=== PATIENT | male | born 1955 | race Two or more races ===

== ENCOUNTER 2017-11-22 14:19 | Inpatient (IN) | payer OTHER ==
[2017-11-22 15:02] LABS: ADD MAN DIFF? NO
[2017-11-22 15:04] LABS: WHITE BLOOD COUNT 10.4 10^3/ul (4.8-10.8)
[2017-11-22 15:04] LABS: BASOPHIL # 0.1 10^3/ul (0.0-0.1); BASOPHILS % 0.6 % (0.0-2.0); EOSINOPHILS # 0.1 10^3/ul (0.0-0.5); EOSINOPHILS % 1.2 % (0.0-7.0); HEMATOCRIT 52.8 % (42.0-52.0); HEMOGLOBIN 17.2 g/dl (14.0-18.0); LYMPHOCYTES # 2.9 10^3/ul (0.8-2.9); LYMPHOCYTES % 28.2 % (15.0-51.0); MEAN CORPUSCULAR HEMOGLOBIN 25.4 pg (29.0-33.0); MEAN CORPUSCULAR HGB CONC 32.6 g/dl (32.0-37.0); MEAN CORPUSCULAR VOLUME 77.9 fl (82.0-101.0); MEAN PLATELET VOLUME 11.8 fl (7.4-10.4); MONOCYTE # 0.8 10^3/ul (0.3-0.9); MONOCYTES % 7.3 % (0.0-11.0); NEUTROPHIL # 6.5 10^3/ul (1.6-7.5); NEUTROPHILS % 62.3 % (39.0-77.0); PLATELET COUNT 165 10^3/UL (140-415); RED BLOOD COUNT 6.78 10^6/ul (4.70-6.10); RED CELL DISTRIBUTION WIDTH 15.7 % (11.5-14.5)
[2017-11-22 15:20] LABS: INR 0.94; PARTIAL THROMBOPLASTIN TIME 32.6 Sec (25.0-35.0); PROTIME 12.7 Sec (11.9-14.9)
[2017-11-22 15:24] LABS: ALANINE AMINOTRANSFERASE 39 IU/L (13-69); ALBUMIN 3.8 g/dl (3.3-4.9); ALBUMIN/GLOBULIN RATIO 1.11; ALKALINE PHOSPHATASE 99 IU/L (42-121); ANION GAP 10 (8-16); ASPARTATE AMINO TRANSFERASE 49 IU/L (15-46); CARBON DIOXIDE 29 mmol/L (21-31); CHLORIDE 104 mmol/L (97-110); CHOL/HDL RATIO 9.6 RATIO; CHOLESTEROL 212 mg/dl (100-200); CREATINE KINASE 237 IU/L (23-200); GLUCOSE 244 mg/dl (70-220); HDL CHOLESTEROL 22 mg/dl (30-78); LDL CHOLESTEROL,CALCULATED 95 mg/dl; TOTAL PROTEIN 7.2 g/dl (6.1-8.1); TRIGLYCERIDES 473 mg/dl (0-149)
[2017-11-22 15:28] LABS: BLOOD UREA NITROGEN 11 mg/dl (7-20); CALCIUM 9.8 mg/dl (8.4-10.2); CREATININE 0.76 mg/dl (0.61-1.24); POTASSIUM 4.3 mmol/L (3.5-5.1); SODIUM 139 mmol/L (135-144)
[2017-11-22 15:36] LABS: CK INDEX 6.1
[2017-11-22] MEDS ORDERED: MIDAZOLAM 1 MG/ML 2 ML INJ (16:04)
[2017-11-22] MEDS ORDERED: FENTAnyl 50 MCG/ML VIAL (16:04)
[2017-11-22] MEDS ORDERED: HEPARIN 1000 UNITS/ML 10 ML INJ (16:04)
[2017-11-22] MEDS ORDERED: IODIXANOL LOCM 100 ML BTL (16:04)
[2017-11-22] MEDS ORDERED: LIDOCAINE 1% (MDV) 20 ML INJ (16:04)
[2017-11-22] MEDS ORDERED: VERAPAMIL 5 MG INJ (16:04)
[2017-11-22] MEDS ORDERED: SOD CHLORIDE 0.9% 500 ML (16:05)
[2017-11-22] MEDS ORDERED: NITROGLYCERIN (IC) 100 MCG/ML INJ (16:05)
[2017-11-22] MEDS ORDERED: NITROGLYCERIN 50 MG/D5W (PMX) 250 ML IV (17:30)
[2017-11-22] MEDS: HEPARIN 25000 UNITS/250 ML 250 ML IV (18:35)
[2017-11-22] MEDS: SOD CHLORIDE 0.9% 1,000 ML IV (18:35)
[2017-11-22] MEDS: ASPIRIN (EC) 81 MG TAB PO (19:08)
[2017-11-22] MEDS: DOCUSATE SODIUM 100 MG CAP PO (20:52)
[2017-11-22] MEDS: FAMOTIDINE 20 MG TAB PO (20:53)
[2017-11-22] MEDS: ATORVASTATIN 80 MG TAB PO (20:53)
[2017-11-22] MEDS: CEFAZOLIN 3 GM in DEXTROSE 5% 100 ML IVPB (21:58)
[2017-11-23 01:09] LABS: PARTIAL THROMBOPLASTIN TIME 34.3 Sec (25.0-35.0)
[2017-11-23] MEDS: PANTOPRAZOLE 40 MG INJ IV (05:16)
[2017-11-23 05:44] LABS: ADD MAN DIFF? NO
[2017-11-23 06:01] LABS: BASOPHIL # 0.1 10^3/ul (0.0-0.1); BASOPHILS % 0.7 % (0.0-2.0); EOSINOPHILS # 0.1 10^3/ul (0.0-0.5); EOSINOPHILS % 1.3 % (0.0-7.0); HEMATOCRIT 50.8 % (42.0-52.0); HEMOGLOBIN 16.5 g/dl (14.0-18.0); LYMPHOCYTES % 33.4 % (15.0-51.0); MEAN CORPUSCULAR HEMOGLOBIN 25.3 pg (29.0-33.0); MEAN CORPUSCULAR HGB CONC 32.5 g/dl (32.0-37.0); MEAN CORPUSCULAR VOLUME 77.8 fl (82.0-101.0); MEAN PLATELET VOLUME 11.7 fl (7.4-10.4); MONOCYTE # 0.7 10^3/ul (0.3-0.9); MONOCYTES % 7.7 % (0.0-11.0); NEUTROPHIL # 5.1 10^3/ul (1.6-7.5); NEUTROPHILS % 56.6 % (39.0-77.0); PLATELET COUNT 137 10^3/UL (140-415); RED BLOOD COUNT 6.53 10^6/ul (4.70-6.10); RED CELL DISTRIBUTION WIDTH 14.6 % (11.5-14.5)
[2017-11-23 06:01] LABS: WHITE BLOOD COUNT 8.9 10^3/ul (4.8-10.8)
[2017-11-23 06:22] LABS: ANION GAP 11 (8-16); BLOOD UREA NITROGEN 13 mg/dl (7-20); CALCIUM 8.9 mg/dl (8.4-10.2); CARBON DIOXIDE 28 mmol/L (21-31); CHLORIDE 104 mmol/L (97-110); CHOLESTEROL 181 mg/dl (100-200); CREATINE KINASE 105 IU/L (23-200); CREATININE 0.74 mg/dl (0.61-1.24); GLUCOSE 246 mg/dl (70-220); HDL CHOLESTEROL 20 mg/dl (30-78); LDL CHOLESTEROL,CALCULATED 94 mg/dl; POTASSIUM 4.3 mmol/L (3.5-5.1); SODIUM 139 mmol/L (135-144); TRIGLYCERIDES 335 mg/dl (0-149)
[2017-11-23 06:24] LABS: CK INDEX 5.2
[2017-11-23 06:58] LABS: CK-MB 5.46 ng/ml (0.0-2.4)
[2017-11-23] MEDS ORDERED: DOPamine-D5W 1.6 MG/ML 250 ML (07:00)
[2017-11-23] MEDS ORDERED: NITROGLYCERIN 50 MG/D5W 250 ML BTL (07:00)
[2017-11-23] MEDS ORDERED: TRANEXAMIC ACID 1,000 MG/10 ML VIAL (07:00)
[2017-11-23] MEDS ORDERED: MIDAZOLAM 5 ML (07:05)
[2017-11-23] MEDS ORDERED: PHENYLephrine (100 MCG/ML) 5ML SYG ×2 (07:06→08:02)
[2017-11-23] MEDS ORDERED: CA CHLORIDE 10% 10 ML SYRINGE (07:38)
[2017-11-23] MEDS ORDERED: MANNITOL 20% 250 ML IV (07:38)
[2017-11-23] MEDS ORDERED: PHENYLephrine 10 MG INJ (07:38)
[2017-11-23] MEDS ORDERED: ALBUMIN HUMAN 25% 100 ML (07:38)
[2017-11-23] MEDS ORDERED: AMINOCAPROIC ACID 5 GM INJ (07:38)
[2017-11-23] MEDS ORDERED: NA BICARBONATE 8.4% 50 ML SYG (07:38)
[2017-11-23] MEDS ORDERED: HEPARIN 1000 UNITS/ML 10 ML INJ ×4 (07:38→09:32)
[2017-11-23] MEDS ORDERED: MAGNESIUM SULFATE (MG) 50% 10 ML INJ (07:38)
[2017-11-23] MEDS ORDERED: LIDOCAINE 100 MG SYRINGE (07:38)
[2017-11-23] MEDS ORDERED: POTASSIUM CHLORIDE 40 MEQ INJ (07:39)
[2017-11-23] MEDS ORDERED: CEFAZOLIN 1 GM INJ ×2 (07:59→10:11)
[2017-11-23] MEDS: PAPAVERINE 60 MG INJ (08:09)
[2017-11-23] MEDS: HEPARIN 1000 UNITS/ML 10 ML INJ (08:09)
[2017-11-23] MEDS ORDERED: FUROSEMIDE 20 MG INJ ×3 (09:32→10:18)
[2017-11-23] MEDS ORDERED: PROTAMINE 250 MG INJ (10:11)
[2017-11-23] MEDS: VANCOMYCIN 1 GM INJ (10:18)
[2017-11-23] MEDS ORDERED: POTASSIUM CHLORIDE 50 ML IVPB (11:00)
[2017-11-23] MEDS ORDERED: DEXTROSE 50% 50 ML SYRINGE IV ×2 (11:00)
[2017-11-23] MEDS ORDERED: ONDANSETRON 4 MG INJ IV (11:00)
[2017-11-23] MEDS ORDERED: ACETAMINOPHEN 650 MG SUPP PR (11:00)
[2017-11-23] MEDS ORDERED: ACETAMINOPHEN 325 MG TAB PO (11:00)
[2017-11-23] MEDS ORDERED: OXYCODONE/ACETAMINOPHEN (5/325) TAB PO (11:00)
[2017-11-23] MEDS ORDERED: LIDOCAINE 2% (SDV) 5 ML INJ (11:09)
[2017-11-23] MEDS ORDERED: ETOMIDATE 20 MG INJ (11:09)
[2017-11-23] MEDS ORDERED: ROCURONIUM 50 MG INJ (11:09)
[2017-11-23] MEDS ORDERED: DOPamine-D5W 1.6 MG/ML 250 ML IV (11:30)
[2017-11-23] MEDS ORDERED: NITROGLYCERIN 50 MG/D5W (PMX) 250 ML IV (11:30)
[2017-11-23] MEDS: INSULIN HUMAN REGULAR 100 UNIT in SOD CHLORIDE 0.9% 99 ML IVPB (11:51)
[2017-11-23] MEDS: NITROGLYCERIN 50 MG/D5W (PMX) 250 ML IV (11:52)
[2017-11-23 11:53] LABS: ADD MAN DIFF? NO
[2017-11-23] MEDS: DOPamine-D5W 1.6 MG/ML 250 ML IV (11:53)
[2017-11-23 11:55] LABS: WHITE BLOOD COUNT 13.3 10^3/ul (4.8-10.8)
[2017-11-23 11:55] LABS: BASOPHIL # 0.1 10^3/ul (0.0-0.1); BASOPHILS % 0.4 % (0.0-2.0); EOSINOPHILS # 0.1 10^3/ul (0.0-0.5); EOSINOPHILS % 0.6 % (0.0-7.0); HEMATOCRIT 45.5 % (42.0-52.0); HEMOGLOBIN 14.9 g/dl (14.0-18.0); LYMPHOCYTES # 2.5 10^3/ul (0.8-2.9); LYMPHOCYTES % 19.1 % (15.0-51.0); MEAN CORPUSCULAR HEMOGLOBIN 25.8 pg (29.0-33.0); MEAN CORPUSCULAR HGB CONC 32.7 g/dl (32.0-37.0); MEAN CORPUSCULAR VOLUME 78.7 fl (82.0-101.0); MONOCYTE # 0.8 10^3/ul (0.3-0.9); MONOCYTES % 5.9 % (0.0-11.0); NEUTROPHIL # 9.8 10^3/ul (1.6-7.5); NEUTROPHILS % 73.4 % (39.0-77.0); POSITIVE DIFF @See below; RED BLOOD COUNT 5.78 10^6/ul (4.70-6.10); RED CELL DISTRIBUTION WIDTH 14.8 % (11.5-14.5)
[2017-11-23 11:58] LABS: PLATELET COUNT 125 10^3/UL (140-415)
[2017-11-23 11:59] LABS: AADO2 Arterial 290.2 mmHg (7.0-24.0); Arterial Base Excess -1.9 mmol/L (-3.0-3); Arterial Blood Gas Oxygen Sat 91.7 mmHG (95.0-98.0); Arterial COHb 1.3 % (0.0-3.0); Arterial Fraction of Oxyhgb 90.1 % (93.0-99.0); Arterial HCO3 26.7 mmol/L (22.0-26.0); Arterial MetHb 0.4 % (0.0-1.5); Arterial Total Hemglobin 15.8 g/dl (12.0-18.0); Arterial pCO2 61.8 mmhg (35-45); MODE VENT - AC; Site A-Line
[2017-11-23] MEDS: HYDROmorphONE 0.5 MG/0.5 ML SYG IV ×4 (12:10→17:39)
[2017-11-23 12:18] LABS: INR 1.13; PROTIME 14.7 Sec (11.9-14.9); PT RATIO 1.1
[2017-11-23 12:19] LABS: PARTIAL THROMBOPLASTIN TIME 26.4 Sec (25.0-35.0)
[2017-11-23] MEDS ORDERED: PROPOFOL 100 ML IV (12:30)
[2017-11-23 12:43] LABS: ANION GAP 8 (8-16); BLOOD UREA NITROGEN 13 mg/dl (7-20); CALCIUM 7.9 mg/dl (8.4-10.2); CARBON DIOXIDE 27 mmol/L (21-31); CHLORIDE 108 mmol/L (97-110); CREATININE 0.79 mg/dl (0.61-1.24); GLUCOSE 157 mg/dl (70-220); MAGNESIUM 2.6 mg/dl (1.7-2.5); POTASSIUM 3.4 mmol/L (3.5-5.1); SODIUM 140 mmol/L (135-144)
[2017-11-23] MEDS: PROPOFOL 100 ML IV ×2 (13:31→23:30)
[2017-11-23 13:37] LABS: AADO2 Arterial 128.6 mmHg (7.0-24.0); Arterial Base Excess -0.3 mmol/L (-3.0-3); Arterial COHb 1.1 % (0.0-3.0); Arterial Fraction of Oxyhgb 93.6 % (93.0-99.0); Arterial HCO3 28.4 mmol/L (22.0-26.0); Arterial MetHb 0.4 % (0.0-1.5); Arterial Total Hemglobin 16.6 g/dl (12.0-18.0); Arterial pCO2 62.9 mmhg (35-45); Blood Gas PS 10; MODE VENT - CPAP; Site A-Line
[2017-11-23] MEDS ORDERED: ALBUMIN HUMAN 5% 250 ML (13:56)
[2017-11-23] MEDS: ALBUMIN HUMAN 5% 250 ML IV (14:04)
[2017-11-23] MEDS: INSULIN HUMAN REGULAR 100 UNIT in SOD CHLORIDE 0.9% 99 ML IV ×3 (14:17→23:19)
[2017-11-23] MEDS: CEFAZOLIN 1 GM/50 ML (PMX) 50 ML IVPB ×2 (14:27→19:15)
[2017-11-23] MEDS: DEXMEDETOMIDINE HCL 200 MCG in SOD CHLORIDE 0.9% 48 ML IV (14:28)
[2017-11-23] MEDS: POTASSIUM CHLORIDE 40 MEQ, CALCIUM CHLORIDE 10% 1 GM in DEXTROSE 5%-0.225% NACL 1,000 ML IV (14:53)
[2017-11-23] MEDS: KCL 30 MEQ in NS 250 ML IVPB X1 IVPB (16:05)
[2017-11-23] MEDS: ALBUTEROL/IPRATROPIUM (NEB) 3 ML AMP HHN ×2 (17:47→20:20)
[2017-11-23] MEDS: FAMOTIDINE 20 MG INJ IV (20:00)
[2017-11-23 20:14] LABS: MAGNESIUM 1.9 mg/dl (1.7-2.5)
[2017-11-23 20:14] LABS: POTASSIUM 4.2 mmol/L (3.5-5.1)
[2017-11-23] MEDS: MAGNESIUM SULFATE 1 GM/D5W 100 ML IVPB ×2 (20:32)
[2017-11-23] MEDS: KETOROLAC 30 MG INJ IV (20:39)
[2017-11-23] MEDS: FAMOTIDINE 20 MG TAB PO (20:39)
[2017-11-24] MEDS: POTASSIUM CHLORIDE 100 ML IVPB ×2 (00:30→10:22)
[2017-11-24] MEDS: ALBUTEROL/IPRATROPIUM (NEB) 3 ML AMP HHN ×6 (01:47→20:50)
[2017-11-24] MEDS: CEFAZOLIN 1 GM/50 ML (PMX) 50 ML IVPB (02:47)
[2017-11-24 04:19] LABS: ADD MAN DIFF? NO
[2017-11-24 04:22] LABS: WHITE BLOOD COUNT 13.4 10^3/ul (4.8-10.8)
[2017-11-24 04:22] LABS: BASOPHILS % 0.1 % (0.0-2.0); HEMATOCRIT 42.5 % (42.0-52.0); HEMOGLOBIN 13.9 g/dl (14.0-18.0); LYMPHOCYTES # 1.5 10^3/ul (0.8-2.9); LYMPHOCYTES % 10.8 % (15.0-51.0); MEAN CORPUSCULAR HEMOGLOBIN 26.1 pg (29.0-33.0); MEAN CORPUSCULAR HGB CONC 32.7 g/dl (32.0-37.0); MEAN CORPUSCULAR VOLUME 79.7 fl (82.0-101.0); MEAN PLATELET VOLUME 11.7 fl (7.4-10.4); MONOCYTES % 7.3 % (0.0-11.0); NEUTROPHIL # 10.9 10^3/ul (1.6-7.5); NEUTROPHILS % 81.3 % (39.0-77.0); PLATELET COUNT 113 10^3/UL (140-415); POSITIVE DIFF @See below; RED BLOOD COUNT 5.33 10^6/ul (4.70-6.10); RED CELL DISTRIBUTION WIDTH 14.8 % (11.5-14.5)
[2017-11-24 04:44] LABS: INR 1.12; PARTIAL THROMBOPLASTIN TIME 33.2 Sec (25.0-35.0); PROTIME 14.6 Sec (11.9-14.9); PT RATIO 1.1
[2017-11-24] MEDS: HYDROmorphONE 0.5 MG/0.5 ML SYG IV ×2 (06:09→10:22)
[2017-11-24 07:00] LABS: AADO2 Arterial 49.5 mmHg (7.0-24.0); Arterial Base Excess -2.9 mmol/L (-3.0-3); Arterial Blood Gas Oxygen Sat 92.3 mmHG (95.0-98.0); Arterial COHb 1.2 % (0.0-3.0); Arterial Fraction of Oxyhgb 90.9 % (93.0-99.0); Arterial HCO3 20.6 mmol/L (22.0-26.0); Arterial MetHb 0.3 % (0.0-1.5); Arterial Total Hemglobin 14.1 g/dl (12.0-18.0); Arterial pCO2 32.7 mmhg (35-45); MODE ROOM AIR; Site A-Line
[2017-11-24 07:19] LABS: ANION GAP 10 (8-16); BLOOD UREA NITROGEN 10 mg/dl (7-20); CARBON DIOXIDE 24 mmol/L (21-31); CHLORIDE 111 mmol/L (97-110); CREATININE 0.65 mg/dl (0.61-1.24); GLUCOSE 144 mg/dl (70-220); MAGNESIUM 2.1 mg/dl (1.7-2.5); POTASSIUM 4.2 mmol/L (3.5-5.1); SODIUM 141 mmol/L (135-144)
[2017-11-24] MEDS: EPINEPHrine 4 MG in DEXTROSE 5% 246 ML IV (07:55)
[2017-11-24] MEDS: POTASSIUM CHLORIDE 40 MEQ, CALCIUM CHLORIDE 10% 1 GM in DEXTROSE 5%-0.225% NACL 1,000 ML IV (07:55)
[2017-11-24] MEDS: PHENYLephrine 20MG IN 250 ML 250 ML IV ×2 (07:55)
[2017-11-24] MEDS: NORepinephrine 8MG/250 ML (PMX 250 ML IV (07:55)
[2017-11-24] MEDS: ASPIRIN 600 MG SUPP PR (07:55)
[2017-11-24] MEDS: HEPARIN (10000 UNITS/ML) 10,000 UNIT, MILRINONE LACTATE 10 MG in SOD CHLORIDE 0.9% 1,00... SC (07:55)
[2017-11-24] MEDS: MILRINONE LACTATE 2 MG in SOD CHLORIDE 0.9% 50 ML IV (07:55)
[2017-11-24] MEDS: ACCU-CHEK XX ×2 (07:57→08:16)
[2017-11-24] MEDS: FAMOTIDINE 20 MG INJ IV (08:46)
[2017-11-24] MEDS: ASPIRIN (EC) 81 MG TAB PO (08:47)
[2017-11-24] MEDS: ENOXAPARIN 40 MG/0.4 ML SYG SC (08:48)
[2017-11-24 09:04] LABS: AADO2 Arterial 130.6 mmHg (7.0-24.0); Arterial Base Excess 1.2 mmol/L (-3.0-3); Arterial Blood Gas Oxygen Sat 97.2 mmHG (95.0-98.0); Arterial COHb 0.9 % (0.0-3.0); Arterial HCO3 28.1 mmol/L (22.0-26.0); Arterial MetHb 0.3 % (0.0-1.5); Arterial Total Hemglobin 15.2 g/dl (12.0-18.0); Blood Gas PS 10; MODE VENT - CPAP; Site A-Line
[2017-11-24] MEDS ORDERED: GLUCAGON 1 MG INJ IM (10:00)
[2017-11-24] MEDS ORDERED: GLUCOSE GEL 15 GRAM TUBE PO ×2 (10:00)
[2017-11-24] MEDS ORDERED: GLUCOSE GEL 15 GRAM TUBE BUCCAL (10:00)
[2017-11-24] MEDS ORDERED: DEXTROSE 50% 50 ML SYRINGE IV ×2 (10:00)
[2017-11-24] MEDS: INSULIN ASPART [NOVOLOG] 3 ML PEN SC ×6 (11:37→21:36)
[2017-11-24] MEDS: INSULIN GLARGINE [LANtus] 3 ML PEN SC (11:37)
[2017-11-24] MEDS: OXYCODONE/ACETAMINOPHEN (5/325) TAB PO (15:31)
[2017-11-24] MEDS: ATORVASTATIN 40 MG TAB PO (21:03)
[2017-11-25] MEDS: ALBUTEROL/IPRATROPIUM (NEB) 3 ML AMP HHN ×6 (01:23→20:05)
[2017-11-25] MEDS: ACCU-CHEK XX (01:29)
[2017-11-25] MEDS: OXYCODONE/ACETAMINOPHEN (5/325) TAB PO (04:19)
[2017-11-25 06:11] LABS: ADD MAN DIFF? NO
[2017-11-25 06:20] LABS: WHITE BLOOD COUNT 13.6 10^3/ul (4.8-10.8)
[2017-11-25 06:20] LABS: BASOPHILS % 0.1 % (0.0-2.0); EOSINOPHILS % 0.2 % (0.0-7.0); HEMATOCRIT 41.7 % (42.0-52.0); HEMOGLOBIN 13.8 g/dl (14.0-18.0); LYMPHOCYTES # 1.8 10^3/ul (0.8-2.9); LYMPHOCYTES % 13.3 % (15.0-51.0); MEAN CORPUSCULAR HEMOGLOBIN 26.3 pg (29.0-33.0); MEAN CORPUSCULAR HGB CONC 33.1 g/dl (32.0-37.0); MEAN CORPUSCULAR VOLUME 79.4 fl (82.0-101.0); MEAN PLATELET VOLUME 11.9 fl (7.4-10.4); MONOCYTES % 7.2 % (0.0-11.0); NEUTROPHIL # 10.6 10^3/ul (1.6-7.5); NEUTROPHILS % 78.4 % (39.0-77.0); PLATELET COUNT 114 10^3/UL (140-415); RED BLOOD COUNT 5.25 10^6/ul (4.70-6.10); RED CELL DISTRIBUTION WIDTH 14.6 % (11.5-14.5)
[2017-11-25 06:36] LABS: INR 1.11; PROTIME 14.5 Sec (11.9-14.9); PT RATIO 1.1
[2017-11-25 06:56] LABS: PHOSPHORUS 2.8 mg/dl (2.5-4.9)
[2017-11-25 06:56] LABS: MAGNESIUM 1.7 mg/dl (1.7-2.5)
[2017-11-25] MEDS: INSULIN ASPART [NOVOLOG] 3 ML PEN SC ×7 (07:54→20:20)
[2017-11-25] MEDS: INSULIN GLARGINE [LANtus] 3 ML PEN SC (07:54)
[2017-11-25] MEDS ORDERED: INSULIN GLARGINE [LANtus] 3 ML PEN SC (08:00)
[2017-11-25 08:32] LABS: ALANINE AMINOTRANSFERASE 31 IU/L (13-69); ALBUMIN 3.1 g/dl (3.3-4.9); ALKALINE PHOSPHATASE 86 IU/L (42-121); ANION GAP 11 (8-16); ASPARTATE AMINO TRANSFERASE 21 IU/L (15-46); BLOOD UREA NITROGEN 11 mg/dl (7-20); CALCIUM 8.7 mg/dl (8.4-10.2); CARBON DIOXIDE 27 mmol/L (21-31); CHLORIDE 102 mmol/L (97-110); CREATININE 0.67 mg/dl (0.61-1.24); GLUCOSE 203 mg/dl (70-220); POTASSIUM 4.2 mmol/L (3.5-5.1); SODIUM 136 mmol/L (135-144); TOTAL PROTEIN 5.9 g/dl (6.1-8.1)
[2017-11-25] MEDS: LISINOPRIL 10 MG TAB PO (08:45)
[2017-11-25] MEDS: ASPIRIN (EC) 81 MG TAB PO (08:46)
[2017-11-25] MEDS: ENOXAPARIN 40 MG/0.4 ML SYG SC (08:47)
[2017-11-25] MEDS: ATORVASTATIN 40 MG TAB PO (20:19)
[2017-11-25] MEDS: ZOLPIDEM 5 MG TAB PO (20:19)
[2017-11-26] MEDS: ALBUTEROL/IPRATROPIUM (NEB) 3 ML AMP HHN ×6 (00:55→20:51)
[2017-11-26] MEDS: ZOLPIDEM 5 MG TAB PO ×2 (01:59→22:50)
[2017-11-26] MEDS: ACCU-CHEK XX (02:00)
[2017-11-26 06:59] LABS: ADD MAN DIFF? NO
[2017-11-26 07:04] LABS: WHITE BLOOD COUNT 11.9 10^3/ul (4.8-10.8)
[2017-11-26 07:04] LABS: BASOPHILS % 0.3 % (0.0-2.0); EOSINOPHILS # 0.1 10^3/ul (0.0-0.5); HEMATOCRIT 41.7 % (42.0-52.0); HEMOGLOBIN 13.4 g/dl (14.0-18.0); LYMPHOCYTES # 1.8 10^3/ul (0.8-2.9); LYMPHOCYTES % 15.3 % (15.0-51.0); MEAN CORPUSCULAR HEMOGLOBIN 25.6 pg (29.0-33.0); MEAN CORPUSCULAR HGB CONC 32.1 g/dl (32.0-37.0); MEAN CORPUSCULAR VOLUME 79.6 fl (82.0-101.0); MEAN PLATELET VOLUME 11.7 fl (7.4-10.4); MONOCYTE # 1.1 10^3/ul (0.3-0.9); MONOCYTES % 8.8 % (0.0-11.0); NEUTROPHIL # 8.8 10^3/ul (1.6-7.5); NEUTROPHILS % 73.9 % (39.0-77.0); PLATELET COUNT 156 10^3/UL (140-415); RED BLOOD COUNT 5.24 10^6/ul (4.70-6.10); RED CELL DISTRIBUTION WIDTH 14.6 % (11.5-14.5)
[2017-11-26 07:34] LABS: B-TYPE NATRIURETIC PEPTIDE 1120 PG/ML (0-125)
[2017-11-26 07:35] LABS: ALANINE AMINOTRANSFERASE 25 IU/L (13-69); ALBUMIN 3.1 g/dl (3.3-4.9); ALBUMIN/GLOBULIN RATIO 0.96; ALKALINE PHOSPHATASE 94 IU/L (42-121); ANION GAP 12 (8-16); ASPARTATE AMINO TRANSFERASE 20 IU/L (15-46); BILIRUBIN,INDIRECT 0.9 mg/dl (0-1.1); BILIRUBIN,TOTAL 0.9 mg/dl (0.2-1.3); BLOOD UREA NITROGEN 13 mg/dl (7-20); CALCIUM 9.1 mg/dl (8.4-10.2); CARBON DIOXIDE 30 mmol/L (21-31); CHLORIDE 99 mmol/L (97-110); CREATININE 0.73 mg/dl (0.61-1.24); GLUCOSE 218 mg/dl (70-220); MAGNESIUM 1.7 mg/dl (1.7-2.5); SODIUM 137 mmol/L (135-144); TOTAL PROTEIN 6.3 g/dl (6.1-8.1)
[2017-11-26] MEDS: INSULIN ASPART [NOVOLOG] 3 ML PEN SC ×7 (08:20→20:16)
[2017-11-26] MEDS: INSULIN GLARGINE [LANtus] 3 ML PEN SC (08:22)
[2017-11-26] MEDS: ASPIRIN (EC) 81 MG TAB PO (08:25)
[2017-11-26] MEDS: LISINOPRIL 10 MG TAB PO (08:25)
[2017-11-26] MEDS: ENOXAPARIN 40 MG/0.4 ML SYG SC (08:27)
[2017-11-26] MEDS: BUMETANIDE 1 MG INJ IV (14:46)
[2017-11-26] MEDS ORDERED: POTASSIUM CHLORIDE 20 MEQ POWDER FOR ORAL SOLN PO ×3 (18:30)
[2017-11-26] MEDS: COLCHICINE 0.6 MG TAB PO (20:13)
[2017-11-26] MEDS: ATORVASTATIN 40 MG TAB PO (20:13)
[2017-11-27] MEDS: ALBUTEROL/IPRATROPIUM (NEB) 3 ML AMP HHN ×2 (00:26→04:07)
[2017-11-27] MEDS: ACCU-CHEK XX (02:00)
[2017-11-27] MEDS: BUMETANIDE 0.5 MG TAB PO (05:28)
[2017-11-27] MEDS ORDERED: BUMETANIDE 1 MG TAB PO (06:00)
[2017-11-27 06:52] LABS: ADD MAN DIFF? NO
[2017-11-27 07:12] LABS: BASOPHIL # 0.1 10^3/ul (0.0-0.1); BASOPHILS % 0.6 % (0.0-2.0); EOSINOPHILS # 0.3 10^3/ul (0.0-0.5); EOSINOPHILS % 3.4 % (0.0-7.0); HEMATOCRIT 43.3 % (42.0-52.0); HEMOGLOBIN 13.9 g/dl (14.0-18.0); LYMPHOCYTES # 2.5 10^3/ul (0.8-2.9); LYMPHOCYTES % 24.7 % (15.0-51.0); MEAN CORPUSCULAR HEMOGLOBIN 25.7 pg (29.0-33.0); MEAN CORPUSCULAR HGB CONC 32.1 g/dl (32.0-37.0); MEAN PLATELET VOLUME 11.9 fl (7.4-10.4); MONOCYTE # 1.1 10^3/ul (0.3-0.9); MONOCYTES % 10.7 % (0.0-11.0); NEUTROPHILS % 60.1 % (39.0-77.0); PLATELET COUNT 192 10^3/UL (140-415); RED BLOOD COUNT 5.41 10^6/ul (4.70-6.10)
[2017-11-27 07:39] LABS: PHOSPHORUS 4.2 mg/dl (2.5-4.9)
[2017-11-27 07:39] LABS: MAGNESIUM 1.7 mg/dl (1.7-2.5)
[2017-11-27 07:53] LABS: ANION GAP 13 (8-16); BLOOD UREA NITROGEN 16 mg/dl (7-20); CALCIUM 8.7 mg/dl (8.4-10.2); CARBON DIOXIDE 36 mmol/L (21-31); CHLORIDE 99 mmol/L (97-110); CREATININE 0.77 mg/dl (0.61-1.24); GLUCOSE 186 mg/dl (70-220); POTASSIUM 3.7 mmol/L (3.5-5.1); SODIUM 144 mmol/L (135-144)
[2017-11-27] MEDS: ASPIRIN (EC) 81 MG TAB PO (08:29)
[2017-11-27] MEDS: LISINOPRIL 10 MG TAB PO (08:29)
[2017-11-27] MEDS: COLCHICINE 0.6 MG TAB PO ×2 (08:29→21:21)
[2017-11-27] MEDS: INSULIN GLARGINE [LANtus] 3 ML PEN SC (08:35)
[2017-11-27] MEDS: INSULIN ASPART [NOVOLOG] 3 ML PEN SC ×7 (08:36→21:00)
[2017-11-27] MEDS: ENOXAPARIN 40 MG/0.4 ML SYG SC (08:36)
[2017-11-27] MEDS: BUMETANIDE 1 MG INJ IV (10:02)
[2017-11-27] MEDS ORDERED: POTASSIUM CHLORIDE 40 MEQ, CALCIUM CHLORIDE 10% 1 GM in DEXTROSE 5%-0.225% NACL 1,000 ML IV (10:09)
[2017-11-27] MEDS ORDERED: INSULIN HUMAN REGULAR 100 UNIT in SOD CHLORIDE 0.9% 99 ML IV (10:30)
[2017-11-27] MEDS ORDERED: MAGNESIUM SULFATE 1 GM/D5W 100 ML IVPB (10:30)
[2017-11-27] MEDS ORDERED: NITROGLYCERIN 50 MG/D5W (PMX) 250 ML IV (10:30)
[2017-11-27] MEDS ORDERED: POTASSIUM CHLORIDE 50 ML IVPB (10:30)
[2017-11-27] MEDS ORDERED: OXYCODONE/ACETAMINOPHEN (5/325) TAB PO ×2 (10:30)
[2017-11-27] MEDS ORDERED: ACCU-CHEK XX (10:30)
[2017-11-27] MEDS ORDERED: DEXTROSE 50% 50 ML SYRINGE IV ×4 (10:30→11:30)
[2017-11-27] MEDS ORDERED: DOPamine-D5W 1.6 MG/ML 250 ML IV (10:30)
[2017-11-27] MEDS ORDERED: ACETAMINOPHEN 325 MG TAB PO (10:30)
[2017-11-27] MEDS ORDERED: ONDANSETRON 4 MG INJ IV (10:30)
[2017-11-27] MEDS ORDERED: CEFAZOLIN 1 GM/50 ML (PMX) 50 ML IVPB (10:30)
[2017-11-27] MEDS ORDERED: HYDROmorphONE 0.5 MG/0.5 ML SYG IV ×2 (10:30)
[2017-11-27] MEDS ORDERED: GLUCAGON 1 MG INJ IM (11:30)
[2017-11-27] MEDS ORDERED: GLUCOSE GEL 15 GRAM TUBE BUCCAL (11:30)
[2017-11-27] MEDS ORDERED: GLUCOSE GEL 15 GRAM TUBE PO ×2 (11:30)
[2017-11-27] MEDS: BUMETANIDE 1 MG TAB PO (17:19)
[2017-11-27] MEDS ORDERED: BUMETANIDE 0.5 MG TAB PO (18:00)
[2017-11-27] MEDS ORDERED: FAMOTIDINE 20 MG INJ IV (20:00)
[2017-11-27] MEDS ORDERED: FAMOTIDINE 20 MG TAB PO (21:00)
[2017-11-27] MEDS: ATORVASTATIN 40 MG TAB PO (21:22)
[2017-11-27] MEDS: ZOLPIDEM 5 MG TAB PO (21:22)
[2017-11-27] MEDS: FAMOTIDINE 20 MG TAB PO (21:22)
[2017-11-28] MEDS: ACCU-CHEK XX (02:00)
[2017-11-28] MEDS: BUMETANIDE 1 MG TAB PO ×2 (05:46→17:31)
[2017-11-28 07:37] LABS: ALANINE AMINOTRANSFERASE 38 IU/L (13-69); ALBUMIN 3.5 g/dl (3.3-4.9); ALBUMIN/GLOBULIN RATIO 1.09; ALKALINE PHOSPHATASE 152 IU/L (42-121); ANION GAP 18 (8-16); ASPARTATE AMINO TRANSFERASE 34 IU/L (15-46); BILIRUBIN,INDIRECT 0.9 mg/dl (0-1.1); BILIRUBIN,TOTAL 0.9 mg/dl (0.2-1.3); BLOOD UREA NITROGEN 20 mg/dl (7-20); CALCIUM 9.6 mg/dl (8.4-10.2); CARBON DIOXIDE 39 mmol/L (21-31); CHLORIDE 92 mmol/L (97-110); CREATININE 0.87 mg/dl (0.61-1.24); GLUCOSE 159 mg/dl (70-220); POTASSIUM 4.4 mmol/L (3.5-5.1); SODIUM 145 mmol/L (135-144); TOTAL PROTEIN 6.7 g/dl (6.1-8.1)
[2017-11-28] MEDS: COLCHICINE 0.6 MG TAB PO (08:36)
[2017-11-28] MEDS: LISINOPRIL 10 MG TAB PO (08:36)
[2017-11-28] MEDS: ASPIRIN 81 MG TAB PO (08:36)
[2017-11-28] MEDS: FAMOTIDINE 20 MG TAB PO (08:36)
[2017-11-28 08:37] LABS: MAGNESIUM 1.8 mg/dl (1.7-2.5)
[2017-11-28] MEDS: ENOXAPARIN 40 MG/0.4 ML SYG SC (08:44)
[2017-11-28] MEDS: INSULIN ASPART [NOVOLOG] 3 ML PEN SC ×6 (08:44→17:23)
[2017-11-28] MEDS: INSULIN GLARGINE [LANtus] 3 ML PEN SC (08:44)
[2017-11-28] MEDS ORDERED: ASPIRIN 325 MG TAB PO (09:00)
== END 2017-11-28 18:00 | disposition home health service (06) | DRG 233 ==
LOC: CCL 14:19 → ICU 11-23 11:20 → TEL 11-24 20:15 → CCL 17:28 → ICU 17:28 → TEL 11-24 20:33
PROC: 4A023N7 Measurement of Cardiac Sampling and Pressure, Left Heart, Percutaneous Approach (ICD-10-PCS; 2017-11-22 15:00)
PROC: B211YZZ Fluoroscopy of Multiple Coronary Arteries using Other Contrast (ICD-10-PCS; 2017-11-22 15:00)
PROC: B215YZZ Fluoroscopy of Left Heart using Other Contrast (ICD-10-PCS; 2017-11-22 15:00)
PROC: 0211093 Bypass Coronary Artery, Two Arteries from Coronary Artery with Autologous Venous Tissue, Open Approach (ICD-10-PCS; principal; 2017-11-22 16:06)
PROC: 02100Z9 Bypass Coronary Artery, One Artery from Left Internal Mammary, Open Approach (ICD-10-PCS; 2017-11-22 16:06)
PROC: 06BP0ZZ Excision of Right Saphenous Vein, Open Approach (ICD-10-PCS; 2017-11-22 16:06)
PROC: 5A1221Z Performance of Cardiac Output, Continuous (ICD-10-PCS; 2017-11-22 16:06)
DX: I21.4 Non-ST elevation (NSTEMI) myocardial infarction (principal); I50.33 Acute on chronic diastolic (congestive) heart failure; I31.3 Pericardial effusion (noninflammatory); I11.0 Hypertensive heart disease with heart failure; E11.65 Type 2 diabetes mellitus with hyperglycemia; I25.82 Chronic total occlusion of coronary artery; F17.200 Nicotine dependence, unspecified, uncomplicated; E78.5 Hyperlipidemia, unspecified; I25.110 Atherosclerotic heart disease of native coronary artery with unstable angina pectoris; J44.9 Chronic obstructive pulmonary disease, unspecified; R09.02 Hypoxemia; Z91.11 Patient's noncompliance with dietary regimen; Z79.84 Long term (current) use of oral hypoglycemic drugs
CPT/HCPCS: 36600; 71045; 80048; 80053; 80061; 82550; 82553; 82803; 82962; 83735; 83880; 84100; 84132; 84484; 85014; 85025; 85610; 85730; 86850; 86900; 86901; 86920; 87081; 93005; 93306; 93312; 93325; 93458; 93880; 94002; 94640; 97116; 97161; 97530; J1940